=== PATIENT | female | born 1985 | race Caucasian/White ===

== ENCOUNTER 2016-07-11 16:19 | Inpatient (IN) | payer BC, OTHER ==
[~2016-07-11] VITALS: Ht 167.6 cm; Wt 75.3 kg
[2016-07-11] VITALS (16 sets, daily range): BP systolic 94–134; BP diastolic 53–78; PULSE 79–166; RESP 16–20; TEMP 97.4–98.4
[~2016-07-11 16:19] MED LIST: DIPHTH/TETANUS/ACEL PERTUSSIS (BOOSTER) 0.5 ML VIAL/PFS IM ONE; MEASLES, MUMPS, RUBELLA VACCINE 0.5 ML VIAL SQ ONE; OXYC-360 PO; PREN0.01 PO
[2016-07-11] MEDS ORDERED: LACTATED RINGER'S 1000 ML INJ 1,000 ML IV PRN (17:14)
[2016-07-11] MEDS ORDERED: LACTATED RINGER'S 1000 ML INJ 1,000 ML IV SCH (17:14)
--- NOTE | 2016-07-11 17:14 | HHI.HP ---
HPI Chief Complaint Water broken Date Seen: Jul 11, 2016 Travel History International Travel<30 Days: No Contact w/Intl Traveler<30Days: No Known Affected Area: No History of Present Illness HPI Patient is 30-year-old white female at 38 weeks presents planning of rupture the membranes at denies bleeding or significant pain, she is josh irregularly and not really feeling them, NST is reactive amnio sure is positive she is followed Dr. Jefe Monsalve for care Para: 1 : 2 History Obstetric History Obstetric History One vaginal delivery Family History Family History: Negative Social History Alcohol Use: No Tobacco Use: No Substance Abuse: No Allergies-Medications (Allergen,Severity, Reaction): Coded Allergies: No Known Allergies (Unverified , 01/13/13) Home Meds Reported Medications Oxycodone/Acetaminophen (Percocet)5 Mg/325 Mg Tab1-2 Tab PO Q4H PRN #20 TAB FOR PAIN 01/16/13 Multivit/Min/Fol Ac/Iron/Pren ( Vit ( Plus)) Tab1 Tab PO DAILY PRN 01/13/13 Review of Systems General / Constitutional: No: Fever, Weight Gain, Chills, Other Eyes: No: Diploplia, Blurred Vision, Visual changes, Pain, Photophobia HENT: No: Headaches, Vertigo, Lightheadedness Cardiovascular: No: Irregular Rhythm, Chest Pain or Discomfort, Palpitations, Tachycardia, Syncope, Varicosities, Edema, Cyanosis Respiratory: No: Cough, Short of Breath, Other Gastrointestinal: No: Nausea, Vomiting, Diarrhea Genitourinary: No: Decreased Urinary Output, Oliguria Musculoskeletal: No: Limited ROM, Weakness, Cramping, Edema, Pain Skin: No Rash, No Itching, No Dryness, No Lumps, No Change in Pigmentation, No Change in Nails, No Alopecia, No Lesions Neurologic: No: Weakness, Dizziness, Syncope, Focal Abnormalities, Coordination Problem, Headache, Slurred Speech, Seizures Psychiatric: No: Depression, Suicidal Ideations, Homicidal Ideation Endocrine: No: Heat Intolerance, Cold Intolerance, Polydipsia, Polyuria, Other Physical Exam Narrative GENERAL: Well-nourished, well-developed patient. SKIN: Warm and dry. HEAD: Normocephalic and atraumatic. EYES: No scleral icterus. No injection or drainage. ENT: No nasal drainage noted. Mucous membranes pink. Airway patent. NECK: Supple, trachea midline. No JVD. CARDIOVASCULAR: Regular rate and rhythm without murmurs, gallops, or rubs. RESPIRATORY: Breath sounds equal bilaterally. No accessory muscle use. BREASTS: Bilateral exam showed no masses , no retractions, no nipple discharge. ABDOMEN/GI: Abdomen soft, non-tender, bowel sounds present, no rebound, no guarding Gravid to [-38 weeks size Fundal Height: [38-] GENITOURINARY: External Genitalia: intact and normal in appearance BUS glands: [-] Cervix: [-] Dilatation: [-1-2] Effacement: [-50] Station: [-2] Presentation: [-vtx] Membranes: ruptured] Uterine Contractions: [-irreg] FHT's: Category: [1-] Baseline: [-133] Reactive: [-yes] Variability: [mod-] Decels: [none-] EXTREMITIES: No cyanosis or edema. BACK: Nontender without obvious deformity. No CVA tenderness. NEUROLOGICAL: Awake and alert. Motor and sensory grossly within normal limits. Five out of 5 muscle strength in all muscle groups. Normal speech. Data Data Labs Amnio sure positive Assessment/Plan Assessment and Plan This patient is 30-year-old white female at 38 weeks with spontaneous rupture membranes at term, she is josh irregularly cervix is 1-2/ 50 and -2/vtx, her heart rate tracing is reactive. We will discuss with Dr. Monsalve and anticipate this admission and vaginal delivery Kentrell Duenas II, MD Jul 11, 2016 17:14
[2016-07-11] MEDS ORDERED: OXYTOCIN 30 UNITS-500ML PREMIX 500 ML IV ONE (17:15)
[2016-07-11] MEDS ORDERED: SODIUM CHLORID 0.9% 500 ML INJ 500 ML IV PRN (17:15)
[2016-07-11] MEDS ORDERED: MINERAL OIL 10 ML VIAL TOPICAL PRN (17:15)
[2016-07-11] MEDS ORDERED: LIDOCAINE HCL 1% 50 ML VIAL INFIL PRN (17:15)
[2016-07-11] MEDS ORDERED: LIDOCAINE HCL 1% 50 ML VIAL I-DERMAL PRN (17:15)
[2016-07-11] MEDS ORDERED: CITRIC ACID-SODIUM CITRATE LIQ 30 ML UDC PO SCH (17:15)
[2016-07-11] MEDS ORDERED: SODIUM CHLOR 0.9% 1000 ML INJ 1,000 ML IV PRN (17:34)
[2016-07-11 18:38] LABS: AUTOMATED NEUTROPHIL # 8.8 TH/MM3 (1.8-7.7); BASOPHIL % 0.4 % (0.0-2.0); EOSINOPHIL % 0.3 % (0.0-4.0); HEMATOCRIT 35.5 % (35.0-46.0); HEMO FLAGS DIFF FINAL; LYMPH % 18.6 % (9.0-44.0); LYMPHOCYTE # 2.2 TH/MM3 (1.0-4.8); MEAN CELL VOLUME 97.6 FL (80.0-100.0); MEAN CORPUSCULAR HEMOGLOBIN 33.1 PG (27.0-34.0); MEAN CORPUSCULAR HGB CONC 33.9 % (32.0-36.0); MONO % 7.2 % (0.0-8.0); NEUT % 73.5 % (16.0-70.0); PLATELET COUNT 148 TH/MM3 (150-450); RED BLOOD COUNT 3.64 MIL/MM3 (4.00-5.30); RED CELL DISTRIBUTION WIDTH 12.8 % (11.6-17.2)
[2016-07-11 18:49] LABS: BLOOD, URINE NEG (NEG); GLUCOSE,URINE NEG (NEG); KETONE, URINE TRACE mg/dL (NEG); NITRITE,URINE NEG (NEG); SQUAMOUS EPITHELIAL CELL URINE 2 /hpf (0-5); URINE COLOR LIGHT-YELLOW (YELLW/STRAW)
[2016-07-11 18:50] LABS: COMMENT (UR) CULT NOT INDICATED; CULTURE IF INDICATED CULT NOT INDICATED
--- NOTE | 2016-07-11 22:03 | PD.OB.DELI ---
Delivery Date: Jul 11, 2016 Anesthesia: None Episiotomy: None Vaginal Delivery: Normal, Spontaneous Presentation: Occiput anterior Nuchal Cord: None Delayed cord clamping (45 sec): Yes Infant: Female, Single One Minute : 8 Five Minute : 9 Weight: 7# 4 oz Care: Spontaneous crying, Responded to stimulation Placenta: Spontaneous delivery, Intact, 3 vessel cord Laceration: Vaginal laceration, 1 deg Repair: Chromic interrupted Jefe Schwarz MD Jul 11, 2016 22:03
[2016-07-11] MEDS ORDERED: DOCUSATE SODIUM 50 MG/SENNA 8.6 MG TAB PO PRN (22:15)
[2016-07-11] MEDS ORDERED: ACETAMINOPHEN 325 MG TAB PO PRN (22:15)
[2016-07-11] MEDS ORDERED: ALUMINUM/MAGNESIUM/SIMETH 30 ML CUP PO PRN (22:15)
[2016-07-11] MEDS ORDERED: ZOLPIDEM TARTRATE 5 MG TAB PO PRN (22:15)
[2016-07-11] MEDS ORDERED: SODIUM CHLORIDE 0.9% FLUSH 5 ML FLUSH IV PRN (22:15)
[2016-07-11] MEDS ORDERED: BENZOCAINE 20% TOPICAL SPRAY 60 ML CAN TOPICAL PRN (22:15)
[2016-07-11] MEDS ORDERED: WITCH HAZEL 50%/GLYCERIN 12.5% 40 PAD JAR TOPICAL PRN (22:15)
[2016-07-11] MEDS ORDERED: ONDANSETRON ODT 4 MG TAB PO PRN (22:15)
[2016-07-11] MEDS: IBUPROFEN 600 MG TAB PO PRN (22:42)
[2016-07-12 00:15] VITALS: BP 108/51; PULSE 80; RESP 18; TEMP 99
[2016-07-12 08:00] VITALS: BP_SYST 101; BP_SYST 128; BP_DIAS 48; BP_DIAS 63; PULSE 67; RESP 16; TEMP 98.1
[2016-07-12] MEDS ORDERED: SODIUM CHLORIDE 0.9% FLUSH 5 ML FLUSH IV SCH (09:00)
--- NOTE | 2016-07-12 09:05 | HHI.OB ---
Subjective Post Day: 1 Remarks doing well no complaints Objective Vitals/I&O Vital Signs Date Time Temp Pulse Resp B/P Pulse Ox O2 Delivery O2 Flow Rate FiO2 07/12/16 08:00 67 16 128/48 07/12/16 08:00 98.1 07/12/16 08:00 101/63 07/12/16 00:15 99.0 80 18 108/51 07/11/16 23:15 85 103/53 07/11/16 23:00 79 103/57 07/11/16 22:47 18 07/11/16 22:46 90 125/65 07/11/16 22:35 97.4 18 07/11/16 22:30 90 107/55 07/11/16 22:17 18 07/11/16 22:16 99 94/66 07/11/16 22:07 166 134/78 07/11/16 22:00 18 07/11/16 21:14 20 07/11/16 19:38 16 07/11/16 19:34 101 120/75 07/11/16 19:00 16 07/11/16 18:59 89 109/66 07/11/16 17:50 98.4 Objective Remarks GENERAL: Well-nourished, well-developed patient. ABDOMEN/GI: Abdomen soft, non-tender. Fundus: Firm, non-tender at umbilicus. GENITOURINARY: Light to moderate bleeding. EXTREMITIES: No cyanosis or edema, non-tender, without signs of DVT. Medications and IVs Current Medications Medications (Trade) Dose Ordered Sig/[place] Route Start Time Stop Time Status Last Admin (NS Flush) 2 ml BID IV 07/12/16 09:00 (NS Flush) 2 ml UNSCH PRN IV 07/11/16 22:15 (Tylenol) 650 mg Q4H PRN PO 07/11/16 22:15 (Motrin) 600 mg Q6H PRN PO 07/11/16 22:15 07/11/16 22:42 (Americaine 20% Top Spr) 1 spray Q4H PRN TOPICAL 07/11/16 22:15 07/11/16 22:43 (Tucks Pads) 1 applic QID PRN TOPICAL 07/11/16 22:15 07/11/16 22:43 (Sadaf-Colace) 2 tab Q12H PRN PO 07/11/16 22:15 (Ambien) 5 mg HS PRN PO 07/11/16 22:15 (Mag-Al Plus Susp Liq) 15 ml Q8H PRN PO 07/11/16 22:15 (Zofran Odt) 4 mg Q6H PRN PO 07/11/16 22:15 Assessment/Plan Assessment and Plan 0n 07/11 Jefe Schwarz MD Jul 12, 2016 09:05
[2016-07-12] MEDS ORDERED: PERC5TAB12 PO (09:06)
--- NOTE | 2016-07-12 09:07 | HHI.DCPOC ---
Discharge Care Plan Diagnosis: (1) Spontaneous vaginal delivery Report Symptoms to Your Doctor -Temperate above 100.5 degrees -Redness, of incision or excessive or foul smelling drainage -Unusual pain or calf pain -Increased vaginal bleeding -Painful or difficulty urinating -Feelings of extreme sadness or anxiety after 2 weeks Goals to Promote Your Health * To prevent worsening of your condition and complications * To maintain your health at the optimal level Directions to Meet Your Goals Take your medications as prescribed Follow your dietary instruction Follow activity as directed Ensure plenty of rest for recovery Drink fluids for hydration Keep your appointments as scheduled Take your immunizations and boosters as scheduled If your symptoms worsen call your PCP, if no PCP go to Urgent Care Center or Emergency Room Smoking is Dangerous to Your Health. Avoid second hand smoke Call the 24-hour crisis hotline for domestic abuse at Jefe Schwarz MD Jul 12, 2016 09:07
[2016-07-12] MEDS ORDERED: oxyCODONE/ACETAMINOPHEN 5 MG/325 MG TAB PO PRN (09:15)
[2016-07-12] MEDS: IBUPROFEN 600 MG TAB PO PRN (12:00)
[2016-07-12 20:00] VITALS: BP 118/70; PULSE 66; RESP 17; TEMP 99
[2016-07-13 08:00] VITALS: BP 104/63; PULSE 68; RESP 18; TEMP 98.3
--- NOTE | 2016-07-13 13:06 | HHI.OB ---
Subjective Post Day: 1 Remarks Pt doing well , no co Objective Vitals/I&O Vital Signs Date Time Temp Pulse Resp B/P Pulse Ox O2 Delivery O2 Flow Rate FiO2 07/13/16 08:00 98.3 68 18 104/63 07/12/16 20:00 99.0 66 17 118/70 Objective Remarks GENERAL: Well-nourished, well-developed patient. ABDOMEN/GI: Abdomen soft, non-tender. Fundus: Firm, non-tender at umbilicus. GENITOURINARY: Light to moderate bleeding. EXTREMITIES: No cyanosis or edema, non-tender, without signs of DVT. Medications and IVs Current Medications Medications (Trade) Dose Ordered Sig/[place] Route Start Time Stop Time Status Last Admin (NS Flush) 2 ml BID IV 07/12/16 09:00 (NS Flush) 2 ml UNSCH PRN IV 07/11/16 22:15 (Tylenol) 650 mg Q4H PRN PO 07/11/16 22:15 (Motrin) 600 mg Q6H PRN PO 07/11/16 22:15 07/12/16 12:00 (Americaine 20% Top Spr) 1 spray Q4H PRN TOPICAL 07/11/16 22:15 07/11/16 22:43 (Tucks Pads) 1 applic QID PRN TOPICAL 07/11/16 22:15 07/11/16 22:43 (Sadaf-Colace) 2 tab Q12H PRN PO 07/11/16 22:15 07/12/16 12:00 (Ambien) 5 mg HS PRN PO 07/11/16 22:15 (Mag-Al Plus Susp Liq) 15 ml Q8H PRN PO 07/11/16 22:15 (Zofran Odt) 4 mg Q6H PRN PO 07/11/16 22:15 (Percocet 5-325 Mg) 1 tab Q4H PRN PO 07/12/16 09:15 Assessment/Plan Assessment and Plan PPD #1 s/p doing well and ready for discharge Discharge Planning pelvic rest, fu 2 wks, percocet prn Diane Dee MD Jul 13, 2016 13:05
== END 2016-07-13 14:05 | disposition home or self-care (01) | DRG 775 ==
LOC: HOBED 16:19 → H2EB 17:12 → H1EA 23:56
PROVIDERS: ADMIT Obstetrics & Gynecology; ATTEND Obstetrics & Gynecology
PROC: 10E0XZZ Delivery of Products of Conception, External Approach (ICD-10-PCS; principal; 2016-07-11)
PROC: 0HQ9XZZ Repair Perineum Skin, External Approach (ICD-10-PCS; 2016-07-11)
DX: O70.0 First degree perineal laceration during delivery (principal); Z37.0 Single live birth; Z3A.38 38 weeks gestation of pregnancy
CPT/HCPCS: 81001; 84112; 85025; 86900; 86901; 99285